=== PATIENT | female | born 1995 | race Caucasian/White ===

== ENCOUNTER 2018-01-03 11:50 | Day surgery (SDC) | payer OTHER ==
[~2018-01-03 11:50] MED LIST: ROCURONIUM 50 MG INJ
[2018-01-03] MEDS ORDERED: MIDAZOLAM 1 MG/ML 2 ML INJ (15:37)
[2018-01-03] MEDS ORDERED: CEFAZOLIN 1 GM INJ (15:37)
[2018-01-03] MEDS ORDERED: ROPIVACAINE 0.5 % 30 ML VIAL (15:37)
[2018-01-03] MEDS ORDERED: FENTAnyl 50 MCG/ML VIAL (15:37)
[2018-01-03] MEDS ORDERED: PROPOFOL 20 ML (15:37)
[2018-01-03] MEDS ORDERED: HYDROmorphONE (0.2 MG/ML) 10ML SYG IV ×3 (16:00)
[2018-01-03] MEDS ORDERED: ONDANSETRON 4 MG INJ IV ×2 (16:00→16:30)
[2018-01-03] MEDS ORDERED: FENTAnyl 50 MCG/ML VIAL IV ×3 (16:00)
[2018-01-03] MEDS ORDERED: MEPERIDINE 25 MG INJ IV (16:00)
[2018-01-03] MEDS ORDERED: METOCLOPRAMIDE 10 MG INJ IV (16:00)
[2018-01-03] MEDS ORDERED: OXYCODONE/ACETAMINOPHEN (5/325) TAB PO ×2 (16:00)
[2018-01-03] MEDS ORDERED: DIPHENHYDRAMINE 50 MG INJ IV (16:00)
[2018-01-03] MEDS ORDERED: KETOROLAC 30 MG INJ (16:11)
[2018-01-03] MEDS ORDERED: DEXAMETHASONE 4 MG/ML 1 ML INJ (16:11)
[2018-01-03] MEDS ORDERED: ONDANSETRON 4 MG INJ (16:11)
[2018-01-03] MEDS ORDERED: METOCLOPRAMIDE 10 MG INJ (16:11)
[2018-01-03] MEDS ORDERED: SUGAMMADEX SODIUM 200 MG/2 ML VIAL IV (16:25)
[2018-01-03] MEDS ORDERED: EPHEDrine SULFATE 50 MG/5 ML SYG (16:28)
[2018-01-03] MEDS ORDERED: HYDROCODONE/APAP (5/325) TAB PO (16:30)
[2018-01-03] MEDS ORDERED: morphine 10 MG INJ IV (16:30)
[2018-01-03] MEDS: HYDROCODONE/APAP (5/325) TAB PO (17:59)
== END 2018-01-03 18:00 | disposition home or self-care (01) ==
LOC: SDS 11:50
DX: M71.21 Synovial cyst of popliteal space [Baker], right knee (principal)
CPT/HCPCS: 27345; 86850; 86900; 86901; 88307